=== PATIENT | female | born 1980 | race Hispanic/Latino ===

== ENCOUNTER 2024-03-20 22:21 | Emergency (ER) | payer OTHER, SELFPAY ==
[2024-03-20 22:21] VITALS: BMI 31.6
[2024-03-20 22:26] VITALS: BP 127/78
[2024-03-20 23:46] LABS: Glucose - Point of Care 100 mg/dl (70-99)
--- NOTE | 2024-03-20 23:47 | ED.GENMED ---
History of Present Illness
General
Chief Complaint: Skin Problem
Source: patient and spouse
Exam Limitations: none
Time Seen by Provider: 03/20/24 23:28
Nursing documentation reviewed up to this point in time: agreed with
History of Present Illness
History of Present Illness:
43-year-old female painful swelling in the right posterior scalp onset a few days ago also some pain in her ear, worsening over the past few days initially was a bit itchy thought she may have been bitten by something no drainage no warmth no nausea
vomiting fever no dysuria frequency not known to be diabetic
Past History
Past History
ED Past Medical History: None
ED Past Surgical History: None
Social History
Tobacco: Non-smoker
Alcohol: Occasional
Drug: None
Personal:
Living: with family
Employment: Employed
Review of Systems
Review of Systems
All Other Systems: Not applicable
Constitutional: Denies fever or fatigue
EENT: Reports other (Right earache)
Respiratory: Reports no symptoms
Skin: Reports itching and other (Swollen areas in the right posterior scalp)
Hematologic/Lymphatic: Reports no symptoms
Psychiatric: Reports no symptoms
Phy Exam
Physical Exam
Physical Exam:
Physical Exam
General: no apparent distress, not acutely ill
Neck: Right TM slightly obscured by what, few minimally tender swollen nodes in the right occipital chain
Heart: Regular
Lungs: no acute respiratory distress. clear bilaterally
Abdomen: Nontender
Neuro: alert and oriented. no focal neurological deficits
Skin: no rash
Psychiatric: well kept. interactive and cooperative
Extremities: no edema.
Course
Orders/Labs/Results
Orders:
Orders
03/20/24 23:42
Bedside Glucose- Treatment ONCE
Amoxicillin 875 mg/Clav 125 mg [Augmentin 875 mg/125 mg] 1 tablet PO NOW STA
Ibuprofen [Motrin] 600 mg PO NOW STA
Abnormal Lab Results
03/20/24
23:44
POC Glucose 100 H mg/dl
(70-99)
Vital Signs
Initial and Last Documented VS:
Initial Vital Signs
Temp Pulse Resp BP Pulse Ox
98.6 F 56 18 127/78 100
03/20/24 22:26 03/20/24 22:26 03/20/24 22:26 03/20/24 22:26 03/20/24 22:26
Last Documented Vital Signs
Temp Pulse Resp BP Pulse Ox
98.6 F 56 18 127/78 100
03/20/24 22:26 03/20/24 22:26 03/20/24 22:26 03/20/24 22:26 03/20/24 22:26
MDM/Problems Addressed
Differential Diagnosis Includes:
Folliculitis, abscess, viral syndrome with swollen nodes, otitis, zoster
MDM/Problems Addressed:
Swollen nodes
*Pulse Oximetry
Patient hypoxic: no
*Critical Care Note
Total Time (30-74mins, 75-104mins- exclusive of procedures): Not Applicable
Update Note
Update Note:
Update, no clear rash to go along with shingles, possibly viral versus bacterial patient restarted on antibiotics told to look out to see if the rash developed
ED Attending Note
-
Portions of this chart may have been created with voice recognition software.� Occasional wrong word or��sound alike� substitutions may have occurred due to the inherent limitations of voice recognition software.
Discharge Plan
Departure
Patient Disposition: Home (Routine Discharge)
Date of Disposition: 03/20/24
Time of Disposition: 23:50
Patient with high blood pressure during this ER visit?: No
Covid-19: Not Applicable
Discharge Problem:
Lymphadenopathy of head and neck, Folliculitis
Prescriptions:
No Action
No Current Medications
0
Referrals:
Willow Kimbrough, [Family Provider] - Next open appointment
Activity Restrictions/Additional Instructions:
Tylenol or ibuprofen for pain
Benadryl 25 mg every 6 hours for itching or swelling
Augmentin antibiotic twice a day for 7 days
Return to the ER or your family doctor here if you develop a rash as this could be signs of shingles
Interventions
Interventions:
*Risk Screen - Suicide Last Done: 03/20/24 22:26
*General Assessment Last Done: 03/20/24 22:26
*Neglect/Abuse Screening Last Done: 03/20/24 23:13
ED- Fall Risk Assessment Last Done: 03/20/24 23:13
*ED COVID-19 Vaccine History Last Done: 03/20/24 23:13
ED-Skin Assessment Last Done: 03/20/24 23:12
Discharge Date and Time
Print Language: KOSOVAN
[2024-03-20] MEDS: AUGMENTIN 875 MG/125 MG 1 TABLET PO (23:53)
[2024-03-20] MEDS: MOTRIN 600 MG PO (23:53)
== END 2024-03-21 00:04 | disposition home or self-care (01) ==
LOC: EMR 22:21
PROVIDERS: EMERGENCY PHYSICIAN Emergency Medicine; FAMILY PHYSICIAN Family Medicine
DX: L73.9 Follicular disorder, unspecified (principal); R59.0 Localized enlarged lymph nodes
CPT/HCPCS: 99283; 82962